=== PATIENT | male | born 1975 | race African-American/Black ===

== ENCOUNTER 2017-08-17 16:31 | Emergency (ER) | payer MEDICAID, OTHER ==
[2017-08-17] MEDS ORDERED: NORMAL SALINE 1000 ML 1,000 ML IV PRN (17:14)
--- NOTE | 2017-08-17 17:26 | ER Document Report ---
ED Blood Sugar Problem - General Mode of Arrival: Ambulatory Information source: Patient TRAVEL OUTSIDE OF THE [place] IN LAST 30 DAYS: No <OZIEL JENSEN - Last Filed: 08/17/17 19:21> <RAMIREZ GUZMAN - Last Filed: 08/17/17 19:40> - General Chief Complaint: High Blood Sugar Stated Complaint: BLOOD SUGAR ISSUES Time Seen by Provider: 08/17/17 17:13 Notes: Patient is a 42-year-old male with type 2 diabetes that presents to the emergency department today with complaints of elevated blood glucose levels. Patient states his sugars have been in the 500s the last 2 days. Patient states he has had a dry mouth, frequent urination, lightheadedness, and blurry vision. Patient states that this has happened once before when he was living in [place] and he was in acute kidney failure at that time. Patient denies any fevers. (OZIEL JENSEN) - Related Data Allergies/Adverse Reactions: No Known Allergies Allergy (Unverified 08/17/17 18:03) Past Medical History - General Information source: Patient - Social History Smoking Status: Current Every Day Smoker Cigarette use (# per day): Yes Frequency of alcohol use: None Drug Abuse: None Lives with: Family Family History: Reviewed & Not Pertinent - Past Medical History Cardiac Medical History: Reports: Hx Hypertension Endocrine Medical History: Reports: Hx Diabetes Mellitus Type 2 Surgical Hx: Negative <OZIEL JENSEN - Last Filed: 08/17/17 19:21> Review of Systems - Review of Systems Constitutional: See HPI, Other - Dry mouth, blood glucose levels in the 500s. denies: Fever EENT: See HPI, Blurred vision Cardiovascular: See HPI, Lightheaded Respiratory: No symptoms reported Gastrointestinal: No symptoms reported Genitourinary: See HPI, Frequency Male Genitourinary: No symptoms reported Musculoskeletal: No symptoms reported Skin: No symptoms reported Hematologic/Lymphatic: No symptoms reported Neurological/Psychological: No symptoms reported -: Yes All other systems reviewed and negative <OZIEL JENSEN - Last Filed: 08/17/17 19:21> Physical Exam <OZIEL JENSEN - Last Filed: 08/17/17 19:21> <RAMIREZ GUZMAN - Last Filed: 08/17/17 19:40> - Vital signs Vitals: Temp Pulse Resp BP Pulse Ox 98.4 F 91 16 126/103 H 97 08/17/17 16:44 08/17/17 16:44 08/17/17 16:44 08/17/17 16:44 08/17/17 16:44 - Notes Notes: PHYSICAL EXAM GENERAL: Alert, interacts well. No acute distress. HEAD: Normocephalic, atraumatic. EYES: Pupils equal, round, and reactive to light. Extraocular movements intact. ENT: Dry oral mucosa, tongue midline. NECK: Full range of motion. Supple. Trachea midline. LUNGS: Clear to auscultation bilaterally, no wheezes, rales, or rhonchi. No respiratory distress. HEART: Regular rate and rhythm. No murmurs, gallops, or rubs. ABDOMEN: Soft, non-tender. Non-distended. Bowel sounds present in all 4 quadrants. No guarding, rigidity, or rebound. EXTREMITIES: Moves all 4 extremities spontaneously. No edema, radial and dorsalis pedis pulses 2/4 bilaterally. No cyanosis. NEUROLOGICAL: Alert and oriented x3. Normal speech. PSYCH: Normal affect, normal mood. SKIN: Warm, dry, normal turgor. No rashes or lesions noted. (OZIEL JENSEN) Course - Laboratory Result Diagrams: 08/17/17 17:45 08/17/17 17:45 <OZIEL JENSEN - Last Filed: 08/17/17 19:21> - Laboratory Result Diagrams: 08/17/17 17:45 08/17/17 17:45 <RAMIREZ GUZMAN - Last Filed: 08/17/17 19:40> - Re-evaluation Re-evalutation: 08/17/17 19:36 CBC unremarkable, CMP unremarkable with the exception of an elevated glucose at 399, anion gap is only 10, CO2 is 26, LFTs normal, CK and CK-MB normal, no evidence of recurrent rhabdo, serum hCG was accidentally ordered on this patient who I initially thought was a female, this is obviously negative. Urinalysis shows greater than 500 glucose but no protein and no ketones. Patient is feeling much better, he has had 2 L of crystalloid, patient will be given insulin and have his Accu-Chek repeated. Patient states he has been taking his metformin 1000 mg once a day, when I checked the bottle it said take the 1000 mg twice a day, patient was counseled on how to appropriately take his medications. Patient does have insurance, will be following up with [facility]. No indication for admission at this time. Patient will be discharged to home. (RAMIREZ GUZMAN) - Vital Signs Vital signs: Temp Pulse Resp BP Pulse Ox 98.4 F 91 16 126/103 H 97 08/17/17 16:44 08/17/17 16:44 08/17/17 16:44 08/17/17 16:44 08/17/17 16:44 - Laboratory Laboratory results interpreted by me: 08/17/17 08/17/17 17:45 18:00 Glucose 399 H Calcium 10.3 H AST 16 L Urine Glucose (UA) >=500 H - EKG Interpretation by Me Additional EKG results interpreted by me: 08/17/17 19:37 EKG shows sinus rhythm at a rate of no T-wave inversions per my interpretation. (RAMIREZ GUZMAN) Discharge <OZIEL JENSEN - Last Filed: 08/17/17 19:21> <RAMIREZ GUZMAN - Last Filed: 08/17/17 19:40> - Discharge Clinical Impression: Diabetes type 2, uncontrolled Qualifiers: Diabetes mellitus mcfp insulin use: without mcfp use Diabetes mellitus complication status: with hyperglycemia Qualified Code(s): E11.65 - Type 2 diabetes mellitus with hyperglycemia Condition: Stable Disposition: HOME, SELF-CARE Additional Instructions: Please check your blood sugar once in the morning and once at night and before random meals throughout the day. Please record these in a diary and take them with you when you go to see her primary care physician. You told me you have been taking your metformin 1 pill once a day, on the bottle with instructions to take it 1 pill twice a day. Please start taking your medications as prescribed on the bottle. You may find this gives you better control of your blood sugar. Should your sugar remain persistently over 300 despite drinking plenty of fluids please return to the emergency department. Please consider going on a carbohydrate restricted diet such as the biNu diet. This may help you to get better control of your blood sugar. Prescriptions: Blood-Glucose Meter, Drum-Type [Accu-Chek] 1 kit MC ASDIR PRN #1 kit PRN Reason: [facility] - Follow up in 1 week Scribe Attestation: 08/17/17 19:40 I personally performed the services described in the documentation, reviewed and edited the documentation which was dictated to the scribe in my presence, and it accurately records my words and actions. (RAMIREZ GUZMAN) Scribe Documentation - Scribe Written by Scribe:: Lizandro Waite, 08/17/2017 1843 acting as scribe for :: Krystal <OZIEL JENSEN - Last Filed: 08/17/17 19:21>
[2017-08-17 17:58] LABS: ABSOLUTE EOSINOPHILS # (AUTO) 0.1 10^3/uL (0.0-0.6); ABSOLUTE LYMPHOCYTES (AUTO) 2.6 10^3/uL (0.5-4.7); ABSOLUTE MONOCYTES (AUTO) 0.6 10^3/uL (0.1-1.4); ABSOLUTE NEUT (AUTO) 5.1 10^3/uL (1.7-8.2); BASOPHILS % (AUTO) 0.5 % (0-2); EOSINOPHILS % (AUTO) 0.9 % (0-6); HEMATOCRIT 42.8 % (37.9-51.0); HEMOGLOBIN 14.9 g/dL (13.5-17.0); LYMPHOCYTES % (AUTO) 31.2 % (13-45); MEAN CORPUSCULAR HEMOGLOBIN 28.9 pg (27.0-33.4); MEAN CORPUSCULAR HGB CONC 34.7 g/dL (32.0-36.0); MEAN CORPUSCULAR VOLUME 83 fl (80-97); MONOCYTES % (AUTO) 7.6 % (3-13); PLATELET COUNT 217 10^3/uL (150-450); RED BLOOD COUNT 5.14 10^6/uL (4.35-5.55); RED CELL DISTRIBUTION WIDTH 13.2 % (11.5-14.0); SEGMENTED NEUTROPHILS % (AUTO) 59.8 % (42-78); TOTAL CELLS COUNTED % (AUTO) 100 %; WHITE BLOOD COUNT 8.5 10^3/uL (4.0-10.5)
[2017-08-17 18:16] LABS: APPEARANCE,URINE CLEAR; BILIRUBIN,URINE NEGATIVE (NEGATIVE); COLOR,URINE STRAW; GLUCOSE, URINE >=500 mg/dL (NEGATIVE); KETONES,URINE NEGATIVE (NEGATIVE); LEUKOCYTE ESTERASE,URINE NEGATIVE (NEGATIVE); NITRITE,URINE NEGATIVE (NEGATIVE); PROTEIN,URINE NEGATIVE (NEGATIVE); UROBILINOGEN,URINE NEGATIVE mg/dL (<2.0)
[2017-08-17 18:17] LABS: ALANINE AMINOTRANSFERASE 32 U/L (21-72); ALBUMIN 4.4 g/dL (3.5-5.0); ALKALINE PHOSPHATASE 74 U/L (38-126); ANION GAP 10 (5-19); ASPARTATE AMINO TRANSFERASE 16 U/L (17-59); BILIRUBIN,DIRECT 0.4 mg/dL (0.0-0.4); BILIRUBIN,TOTAL 0.4 mg/dL (0.2-1.3); BLOOD UREA NITROGEN 16 mg/dL (7-20); CALCIUM 10.3 mg/dL (8.4-10.2); CARBON DIOXIDE 26 mmol/L (22-30); CHLORIDE 103 mmol/L (98-107); CREATINE KINASE 94 U/L (55-170); POTASSIUM 4.5 mmol/L (3.6-5.0); SODIUM 138.9 mmol/L (137-145); TOTAL PROTEIN 7.3 g/dL (6.3-8.2)
[2017-08-17 18:34] LABS: GLUCOSE 399 mg/dL (75-110)
[2017-08-17] MEDS ORDERED: INSULIN REG, HUMAN 100 UNIT/ML 3 ML VIAL (PYX) SUBCUT ONE (19:12)
--- NOTE | 2017-08-17 20:00 | EKG REPORT ---
SEVERITY:- NORMAL ECG - SINUS RHYTHM : Confirmed by: Fatoumata Marcelino MD 17-Aug-2017 19:59:29
[2017-08-17 20:06] VITALS: BP 129/97
== END 2017-08-17 20:06 | disposition home or self-care (01) ==
LOC: ER 16:31
DX: E11.65 Type 2 diabetes mellitus with hyperglycemia (principal); R68.2 Dry mouth, unspecified; R35.0 Frequency of micturition; R42 Dizziness and giddiness; H53.8 Other visual disturbances; F17.210 Nicotine dependence, cigarettes, uncomplicated; E11.9 Type 2 diabetes mellitus without complications
CPT/HCPCS: 93005; 99285; 36415; 82553; 82962; 82550; 84703; 85025; 80053; 81001; 93010; J1815

== ENCOUNTER 2018-08-05 23:15 | Emergency (ER) | payer MEDICAID ==
[2018-08-06 00:25] VITALS: BP 134/89
== END 2018-08-06 03:40 | disposition left against medical advice (07) ==
LOC: ER 23:15
DX: Z53.21 Procedure and treatment not carried out due to patient leaving prior to being seen by health care provider (principal)

== ENCOUNTER → 2020-03-12 | Outpatient (CLI) | payer BC ==
[~2020-03-12] MED LIST: COVID-19 VACCINE (PFIZER)/PF 30 MCG/0.3 ML VIAL IM ONE; EPINEPHRINE INJ/PF 1 MG/1 ML AMPULE IM PRN
== END ==
LOC: EMPHEALTH 09:39
PROVIDERS: ATTEND Internal Medicine
DX: Z23 Encounter for immunization (principal)
CPT/HCPCS: 91300

== ENCOUNTER → 2020-04-02 | Outpatient (CLI) | payer BC | LOC: EMPHEALTH 09:36 | PROVIDERS: ATTEND Internal Medicine | DX: Z23 Encounter for immunization (principal) | CPT/HCPCS: 91300 ==